=== PATIENT | male | born 1980 | race Two or more races ===

== ENCOUNTER 2017-01-08 18:10 | Emergency (ER) | payer OTHER ==
--- NOTE | ~2017-01-08 | CR230 ---
[facility] A Service [facility] RADIOLOGY TEXT RESULTS PATIENT: CARLIE JAY LOCATION: SED : 76 UNIT #: [id number] AGE: [address]: Yulisa Sifuentes APRN SEX: M ORDER DR: [id number] [place] [id number] E MR#: [id number] Acc #: [id number] NAME: CARLIE JAY : 1980 SEX: M STUDY DATE/TIME: 01/08/2017 18:02 UNIT: SED ROOM: STUDY DESCRIPTION: CR Shoulder Min 2 View Rt Attending Physician: Yulisa Sifuentes A.P.R.N. Ordering Physician: Yulisa Sifuentes A.P.R.N. MEDICAL IMAGING REPORT This report is preliminary unless electronic signature is present. EXAM Right shoulder, 3 views. DATE OF EXAM 01/08/2017 HISTORY Right shoulder pain, status post injury today while lifting heavy boxes. FINDINGS AP view with internal and external rotation of the shoulder girdle shows satisfactory relationship of the humeral head and glenoid fossa. The joint space is normal. There is no identifiable fracture or dislocation or bony destructive process about the shoulder girdle anatomy. The acromioclavicular joint is normal. There is no radiopaque foreign body in the region. IMPRESSION Normal right shoulder. Dictated by... Jd Ramos M.D. THIS IS AN ELECTRONICALLY VERIFIED REPORT Jd Ramos M.D. at 01/09/2017 3:16 PM BILLIE/herman TD: 01/08/2017 22:05 [facility] A Service [facility] RADIOLOGY TEXT RESULTS PATIENT: CARLIE JAY LOCATION: SED : 78 UNIT #: [id number] AGE: [address]: Yulisa Sifuentes APRN SEX: M ORDER DR: LYNN #: [id number] MEDICAL IMAGING REPORT Page 1 of 1
== END 2017-01-08 19:36 | disposition home or self-care (01) ==
LOC: SED 18:10
DX: S43.421A Sprain of right rotator cuff capsule, initial encounter (principal); F17.200 Nicotine dependence, unspecified, uncomplicated; X58.XXXA Exposure to other specified factors, initial encounter; Y92.89 Other specified places as the place of occurrence of the external cause
CPT/HCPCS: 73030; 96372; 99283; J1885

== ENCOUNTER 2017-04-17 17:21 | Emergency (ER) | payer OTHER ==
[~2017-04-17] VITALS: Ht 175.3 cm; Wt 79.4 kg
--- NOTE | ~2017-04-17 | CR63 ---
[facility] A Service of [facility] RADIOLOGY TEXT RESULTS PATIENT: CARLIE JAY LOCATION: SED : 78 UNIT #: [id number] AGE: [address]: Ximena Ness MD SEX: M ORDER DR: [id number] [place] [id number] E MR#: [id number] Acc #: [id number] NAME: CARLIE JAY : 1980 SEX: M STUDY DATE/TIME: 04/17/2017 17:45 UNIT: SED ROOM: STUDY DESCRIPTION: CR Chest 2 View Attending Physician: Ximena Ness M.D. Ordering Physician: Ximena Ness M.D. MEDICAL IMAGING REPORT This report is preliminary unless electronic signature is present. EXAM 2-view chest INDICATION Positive PPD test. FINDINGS PA and lateral views of the chest compared to CT chest 11/29/2016. The heart and mediastinal contours are normal. Lungs are clear. IMPRESSION Negative chest radiograph. Dictated by... Derek Cordero M.D. THIS IS AN ELECTRONICALLY VERIFIED REPORT Derek Cordero M.D. at 04/19/2017 10:26 AM RPTiki/gypsy TD: 04/18/2017 07:44 JOB #: [id number] MEDICAL IMAGING REPORT Page 1 of 1
== END 2017-04-17 18:02 | disposition home or self-care (01) ==
LOC: SED 17:21
DX: R76.11 Nonspecific reaction to tuberculin skin test without active tuberculosis (principal)
CPT/HCPCS: 71020; 99281

== ENCOUNTER 2017-04-29 07:50 | Emergency (ER) | payer OTHER ==
--- NOTE | ~2017-04-29 | CT4 ---
[facility] A Service of [facility] RADIOLOGY TEXT RESULTS PATIENT: CARLIE JAY LOCATION: SED : [birth year] UNIT #: [id number] AGE: [address]: Rock Laughlin MD SEX: M ORDER DR: [id number] [place] [id number] E MR#: [id number] Acc #: [id number] NAME: CARLIE JAY : 1980 SEX: M STUDY DATE/TIME: 04/29/2017 8:37 UNIT: SED ROOM: STUDY DESCRIPTION: CT Abd and Pelv Wo Cont Attending Physician: Rock Laughlin M.D. Ordering Physician: Rock Laughlin M.D. MEDICAL IMAGING REPORT This report is preliminary unless electronic signature is present. EXAM CT of abdomen and pelvis without contrast, 04/29/2017. PROCEDURE Axial unenhanced CT abdomen and pelvis with multiplanar reformats. This CT exam was performed with one or more of the following radiation dose reduction techniques: automatic exposure control, adjustment of mA and/or kV according to patient size, and iterative reconstruction. COMPARISON Prior CT abdomen and pelvis 11/29/2016. CLINICAL HISTORY Right side back pain and nausea since 7 a.m. this morning. History of stone disease. FINDINGS The lung bases are unremarkable. ABDOMEN: Unenhanced images of the liver and gallbladder and spleen and pancreas are normal. The adrenal glands are normal and the aorta is normal in caliber. There is no bowel obstruction. The left kidney is normal. There is [id number]-lx-[id number] right hydronephrosis. There are no renal stones but there is a stone in the right upper ureter at or just below the ureteropelvic junction, about 6 x 7 mm in size. No distal ureteral stones are seen on either side. PELVIS: The appendix is normal. There is no pelvic mass or inflammatory change, hernia, adenopathy or abnormal fluid collection. There is some mild spinal degenerative change, but no acute bony abnormality is seen. IMPRESSION [facility] A Service of [facility] RADIOLOGY TEXT RESULTS PATIENT: CARLIE JAY LOCATION: [facility] : [birth year] UNIT #: [id number] AGE: [address]: Rock Laughlin MD SEX: M ORDER DR: 1. Kgjh-va-xegzwbsb right hydronephrosis secondary to an about 6 x 7 mm stone in the right upper to mid ureter just below the ureteropelvic junction. Same stone was seen in the mid pole of the right kidney on the prior CT, and there are no renal stones visible in either kidney on the current exam. 2. Normal appendix, otherwise, negative study. Dictated by... Richard Mendoza M.D. THIS IS AN ELECTRONICALLY VERIFIED REPORT Richard Mendoza M.D. at 05/02/2017 9:02 AM LICHA/herman TD: 04/29/2017 16:53 JOB #: [id number] MEDICAL IMAGING REPORT Page 1 of 1
[2017-04-29] MEDS ORDERED: NO MEDICATIONS (07:53)
[2017-04-29 08:45] LABS: BUN/CREATININE RATIO 22.22; CALCIUM SERUM 8.5 mg/dL (8.4-10.2); CREATININE SERUM 0.9 mg/dL (0.6-1.4); GLOM FILT RATE Estimated 107.2 mL/min (>60)
[2017-04-29 09:52] LABS: URINE SOURCE CLEAN CATCH
[2017-04-29 09:54] LABS: URINE APPEARANCE CLOUDY; URINE BLOOD 3+ (NEG); URINE COLOR YELLOW; URINE GLUCOSE NEG (NORM); URINE KETONE NEG (NEG); URINE LEUKOCYTE ESTERASE NEG (NEG); URINE NITRATE NEG (NEG); URINE PH 5.5 (5-8); URINE PROTEIN 2+ (NEG); URINE SPECIFIC GRAVITY >=1.030 (1.003-1.035)
[2017-04-29 09:57] LABS: MICRO INDICATED? YES; URINE BILIRUBIN NEG (NEG)
[2017-04-29 10:01] LABS: CULTURE INDICATED? NO; URINE BACTERIA NEG (NEG); URINE RBC 200-300 /[HPF] (0-2); URINE WBC 0-2 /[HPF] (0-5)
== END 2017-04-29 10:25 | disposition home or self-care (01) ==
LOC: SED 07:50
PROVIDERS: Emergency Medicine
DX: N13.2 Hydronephrosis with renal and ureteral calculous obstruction (principal)
CPT/HCPCS: 36415; 74176; 80048; 81003; 96361; 96374; 96375; 96376; 99284; J1170; J1885